=== PATIENT | female | born 2000 | race Caucasian/White ===

== ENCOUNTER 2021-06-03 11:51 | Emergency (ER) | payer OTHER ==
[2021-06-03] MEDS ORDERED: OMNICEF 300 MG300 MG PO (14:02)
== END 2021-06-03 14:15 | disposition home or self-care (01) ==
LOC: ER1 11:51
DX: J02.0 Streptococcal pharyngitis (principal); Z88.8 Allergy status to other drugs, medicaments and biological substances; Z20.822 Contact with and (suspected) exposure to COVID-19
CPT/HCPCS: 87081; 87880; 99283; U0002

== ENCOUNTER 2022-04-08 17:20 | Emergency (ER) | payer OTHER ==
[~2022-04-08] VITALS: Ht 165.1 cm; Wt 89.4 kg
[~2022-04-08 17:20] MED LIST: OMNICEF 300 MG300 MG PO
[2022-04-08] MEDS ORDERED: CEPHALEXIN500 M1 PO (22:14)
[2022-04-08] MEDS ORDERED: CYCLOBENZAPRINE5 MG PO (22:14)
[2022-04-08] MEDS ORDERED: DIFLUCAN150 MG PO (22:14)
[2022-04-08] MEDS ORDERED: NAPROSYN500 MG PO (22:14)
== END 2022-04-08 22:30 | disposition home or self-care (01) ==
LOC: ER1 17:20
DX: M54.50 Low back pain, unspecified (principal); R31.9 Hematuria, unspecified; B37.3 Candidiasis of vulva and vagina; Z88.0 Allergy status to penicillin
CPT/HCPCS: 72100; 81001; 84703; 87086; 99283